=== PATIENT | female | born 1990 | race Hispanic/Latino ===

== ENCOUNTER 2020-08-06 20:08 | Observation (INO) | payer MEDICAID ==
[~2020-08-06 20:08] MED LIST: IBUP-1493 PO; PREN-147 PO
[2020-08-06] MEDS ORDERED: LACTATED RINGERS 1000ML 1,000 ML IV PRN (20:30)
[2020-08-06 20:40] LABS: APPEARANCE,URINE Clear (CLEAR); BILIRUBIN,URINE Negative (NEGATIVE); COLOR,URINE Yellow (YELLOW); GLUCOSE, URINE (UA) Negative (NEGATIVE); KETONES,URINE Negative (NEGATIVE); LEUKOCYTE ESTERASE ,URINE Negative (NEGATIVE); NITRATE,URINE Negative (NEGATIVE); OCCULT BLOOD,URINE Negative (NEGATIVE); PH,URINE 6.5 (5.0-8.0); PROTEIN,URINE Negative (NEGATIVE)
[2020-08-06 20:48] LABS: AMPHET/METH SCREEN,URINE NEGATIVE (NEGATIVE); BARBITURATE SCREEN, URINE NEGATIVE (NEGATIVE); BENZODIAZEPINES SCREEN,URINE NEGATIVE (NEGATIVE); CANNABINOID SCREEN,URINE NEGATIVE (NEGATIVE); COCAINE SCREEN,URINE NEGATIVE (NEGATIVE); OPIATE SCREEN,URINE NEGATIVE (NEGATIVE); PHENCYCLIDINE SCREEN,URINE NEGATIVE (NEGATIVE)
[2020-08-06] MEDS ORDERED: TERBUTALINE SULFATE VIAL 1MG/ML SQ SCH ×2 (21:30)
[2020-08-06] MEDS ORDERED: LACTATED RINGERS 1000ML 1,000 ML IV SCH ×2 (21:30)
[2020-08-06] MEDS ORDERED: TERBUTALINE SULFATE VIAL 1MG/ML SQ ONE (21:37)
== END 2020-08-06 22:50 | disposition home or self-care (01) ==
LOC: EDH 20:08 → LDH 20:09
PROVIDERS: ADMIT Specialist; ATTEND Specialist
DX: O60.03 Preterm labor without delivery, third trimester (principal); Z3A.36 36 weeks gestation of pregnancy; Z88.1 Allergy status to other antibiotic agents
CPT/HCPCS: 59025; 80305; 81003; 96360; 96372; 99284; G0378 ×2; J3105

== ENCOUNTER 2020-08-07 14:37 | Observation (INO) | payer MEDICAID ==
[~2020-08-07] VITALS: Ht 165.1 cm; Wt 83.5 kg
[2020-08-07 15:05] LABS: APPEARANCE,URINE Clear (CLEAR); BILIRUBIN,URINE Negative (NEGATIVE); COLOR,URINE Yellow (YELLOW); GLUCOSE, URINE (UA) Negative (NEGATIVE); KETONES,URINE Negative (NEGATIVE); LEUKOCYTE ESTERASE ,URINE Negative (NEGATIVE); NITRATE,URINE Negative (NEGATIVE); OCCULT BLOOD,URINE Negative (NEGATIVE); PH,URINE 6.5 (5.0-8.0); PROTEIN,URINE Negative (NEGATIVE)
[2020-08-07] MEDS ORDERED: LACTATED RINGERS 1000ML IV SCH (16:30)
== END 2020-08-07 16:23 | disposition home or self-care (01) ==
LOC: EDH 14:37 → LDH 14:42
PROVIDERS: ADMIT Specialist; ATTEND Specialist
DX: O62.9 Abnormality of forces of labor, unspecified (principal); Z3A.37 37 weeks gestation of pregnancy
CPT/HCPCS: 59025; 96360; 99284; G0378 ×2; J7120

== ENCOUNTER 2020-08-08 08:32 | Observation (INO) | payer MEDICAID ==
[~2020-08-08] VITALS: Ht 165.1 cm; Wt 83.0 kg
[2020-08-08 10:01] VITALS: BP 109/65
== END 2020-08-08 11:03 | disposition home or self-care (01) ==
LOC: UNDOADMOB 08:32 → EDHIP 08:32 → LDH 09:40
PROVIDERS: ADMIT Specialist; ATTEND Specialist
DX: O24.419 Gestational diabetes mellitus in pregnancy, unspecified control (principal); Z3A.36 36 weeks gestation of pregnancy
CPT/HCPCS: 59025; 76819; G0378

== ENCOUNTER 2020-08-14 17:27 | Observation (INO) | payer MEDICAID ==
[~2020-08-14] VITALS: Ht 165.1 cm; Wt 83.9 kg
[2020-08-14] MEDS ORDERED: TERBUTALINE SULFATE VIAL 1MG/ML SQ PRN (18:45)
[2020-08-14] MEDS ORDERED: LACTATED RINGERS 1000ML IV SCH (18:45)
== END 2020-08-14 21:17 | disposition home or self-care (01) ==
LOC: EDH 17:27 → LDH 17:40
PROVIDERS: ADMIT Specialist; ATTEND Specialist
DX: O62.9 Abnormality of forces of labor, unspecified (principal); Z88.1 Allergy status to other antibiotic agents; Z3A.38 38 weeks gestation of pregnancy
CPT/HCPCS: 59025; 96360; 96361; 96372; 99284; G0378 ×4; J3105; J7120

== ENCOUNTER 2020-08-25 13:40 | Observation (INO) | payer MEDICAID | END 2020-08-25 15:45 | disposition home or self-care (01) | LOC: LDH 13:40 | PROVIDERS: ADMIT Specialist; ATTEND Specialist | DX: O62.9 Abnormality of forces of labor, unspecified (principal); Z3A.38 38 weeks gestation of pregnancy | CPT/HCPCS: 59025; G0378 ==

== ENCOUNTER 2020-08-27 17:54 | Inpatient (IN) | payer MEDICAID ==
[~2020-08-27] VITALS: Ht 165.1 cm; Wt 81.6 kg
[2020-08-27] MEDS: OXYTOCIN-LR 20 UNITS/1000 ML 1,000 ML IV SCH (15:33)
[2020-08-27] MEDS ORDERED: PROMETHAZINE HCL 25 MG/ML 1ML AMPULE IM PRN (18:00)
[2020-08-27] MEDS ORDERED: NALOXONE HCL 0.4 MG/1 ML ML IV PRN (18:00)
[2020-08-27] MEDS ORDERED: LACTATED RINGERS 500 ML 500 ML IV PRN (18:00)
[2020-08-27] MEDS ORDERED: MEPERIDINE-PF 50 MG/ML SYG IVP PRN (18:00)
[2020-08-27] MEDS ORDERED: LACTATED RINGERS 1000ML 1,000 ML IV PRN (18:00)
[2020-08-27] MEDS ORDERED: ROPIVACAINE 0.2% 100ML VIAL 100 ML EP SCH (18:00)
[2020-08-27] MEDS ORDERED: EPHEDRINE SULFATE 50 MG/ML AMPULE IVP PRN (18:00)
[2020-08-27] MEDS ORDERED: PREN-196 PO (18:11)
[2020-08-27] MEDS ORDERED: MISOPROSTOL 100 MCG TABLET VG SCH (18:30)
[2020-08-27 18:32] LABS: HEMATOCRIT 36.4 % (36-48); MEAN CORPUSCULAR HGB CONC 30.2 g/dL (32.0-36.0); MEAN CORPUSCULAR VOLUME 79.5 fL (79-99); PLATELET COUNT (AUTO) 284 K/uL (130-400); RED BLOOD CELL COUNT(AUTO) 4.58 MIL/uL (4.00-5.50); WHITE BLOOD COUNT (AUTO) 7.5 K/uL (4.8-10.8)
[2020-08-27 18:43] LABS: APPEARANCE,URINE Clear (CLEAR); BILIRUBIN,URINE Negative (NEGATIVE); COLOR,URINE Yellow (YELLOW); GLUCOSE, URINE (UA) Negative (NEGATIVE); KETONES,URINE Negative (NEGATIVE); LEUKOCYTE ESTERASE ,URINE Negative (NEGATIVE); NITRATE,URINE Negative (NEGATIVE); OCCULT BLOOD,URINE Negative (NEGATIVE); PH,URINE 6.5 (5.0-8.0); PROTEIN,URINE Negative (NEGATIVE); UROBILINOGEN,URINE 0.2 mg/dL (0.2-1.0)
[2020-08-27] MEDS ORDERED: CALCIUM CARB 500MG CHEW TAB PO SCH (20:00)
[2020-08-28] MEDS ORDERED: OXYTOCIN-LR 20 UNITS/1000 ML 1,000 ML IV SCH ×2 (05:00→06:00)
[2020-08-28] MEDS: OXYTOCIN-LR 20 UNITS/1000 ML 1,000 ML IV SCH (16:26)
[2020-08-28] MEDS ORDERED: WITCH HAZEL 1 PAD TP PRN (16:30)
[2020-08-28] MEDS ORDERED: MEASLES/MUMPS/RUBELLA VACCINE, LIVE 0.5 ML/VIAL SQ PRN (16:30)
[2020-08-28] MEDS ORDERED: LANOLIN 30GM OINTMENT TP PRN (16:30)
[2020-08-28] MEDS ORDERED: BENZOCAINE/LANOLIN/ALOE VERA 60 ML AEROSOL TP PRN (16:30)
[2020-08-28] MEDS ORDERED: DIPH,PERTUSS(ACELL),TET VAC/PF 0.5 ML VIAL IM PRN (16:30)
[2020-08-28] MEDS ORDERED: ACETAMINOPHEN WITH CODEINE 1 TAB TAB PO PRN (16:30)
[2020-08-28] MEDS ORDERED: ACETAMINOPHEN 325 MG TAB PO PRN (16:30)
[2020-08-28 17:40] VITALS: BP 125/77
[2020-08-28] MEDS: IBUPROFEN 600 MG TABLET PO PRN (18:03)
[2020-08-28 19:21] VITALS: BP 132/81
[2020-08-28] MEDS: DOCUSATE SODIUM 100 MG CAP PO SCH (21:05)
[2020-08-28 23:33] VITALS: BP 110/62
[2020-08-29 03:45] VITALS: BP 97/50
[2020-08-29 07:16] LABS: HEPATITIS Bs ANTIGEN SCREEN P Negative (Negative)
[2020-08-29 07:27] VITALS: BP 121/73
[2020-08-29] MEDS: DOCUSATE SODIUM 100 MG CAP PO SCH (08:50)
[2020-08-29] MEDS: IBUPROFEN 600 MG TABLET PO PRN (08:51)
[2020-08-29 10:59] VITALS: BP 122/98
== END 2020-08-29 17:00 | disposition home or self-care (01) | DRG 560 ==
LOC: LDH 17:56 → WSH 08-28 17:35
PROVIDERS: ADMIT Specialist; ATTEND Specialist
PROC: 10E0XZZ Delivery of Products of Conception, External Approach (ICD-10-PCS; principal; 2020-08-28)
PROC: 3E033VJ Introduction of Other Hormone into Peripheral Vein, Percutaneous Approach (ICD-10-PCS; 2020-08-28)
PROC: 00HU33Z Insertion of Infusion Device into Spinal Canal, Percutaneous Approach (ICD-10-PCS; 2020-08-28)
PROC: 3E0R3BZ Introduction of Anesthetic Agent into Spinal Canal, Percutaneous Approach (ICD-10-PCS; 2020-08-28)
PROC: 3E0134Z Introduction of Serum, Toxoid and Vaccine into Subcutaneous Tissue, Percutaneous Approach (ICD-10-PCS; 2020-08-28)
PROC: 3E0234Z Introduction of Serum, Toxoid and Vaccine into Muscle, Percutaneous Approach (ICD-10-PCS; 2020-08-28)
DX: O24.420 Gestational diabetes mellitus in childbirth, diet controlled (principal); O69.1XX0 Labor and delivery complicated by cord around neck, with compression, not applicable or unspecified; Z37.0 Single live birth; Z3A.39 39 weeks gestation of pregnancy; Z23 Encounter for immunization
CPT/HCPCS: 36415; 81003; 82947; 85027; 86592; 86850; 86900; 86901; 87340; 90715; A4314; G0378; J2175; J2550; J2590; J2795; J7120

== ENCOUNTER 2021-10-25 00:17 | Observation (INO) | payer MEDICAID ==
[~2021-10-25] VITALS: Ht 162.6 cm; Wt 84.4 kg
[2021-10-25 00:50] LABS: APPEARANCE,URINE CLEAR (CLEAR); BILIRUBIN,URINE NEGATIVE (NEGATIVE); COLOR,URINE YELLOW (YELLOW); GLUCOSE, URINE (UA) NEGATIVE (NEGATIVE); KETONES,URINE NEGATIVE (NEGATIVE); LEUKOCYTE ESTERASE ,URINE SMALL (NEGATIVE); NITRATE,URINE NEGATIVE (NEGATIVE); OCCULT BLOOD,URINE NEGATIVE (NEGATIVE); PH,URINE 6.5 (5.0-8.0); PROTEIN,URINE NEGATIVE (NEGATIVE); UROBILINOGEN,URINE 0.2 mg/dL (0.2-1.0)
[2021-10-25] MEDS: LACTATED RINGERS 1000ML IV PRN ×2 (01:07→01:38)
[2021-10-25 01:09] LABS: BACTERIA,URINE None Seen /HPF (None Seen); RBC,URINE None Seen /HPF (0-1); SQUAMOUS EPITHELIAL CELL,UR Rare /HPF (0-2); WBC,URINE 0-1 /HPF (0-1)
[2021-10-25 01:17] LABS: AMPHET/METH SCREEN,URINE NEGATIVE (NEGATIVE); BARBITURATE SCREEN, URINE NEGATIVE (NEGATIVE); BENZODIAZEPINES SCREEN,URINE NEGATIVE (NEGATIVE); CANNABINOID SCREEN,URINE NEGATIVE (NEGATIVE); COCAINE SCREEN,URINE NEGATIVE (NEGATIVE); OPIATE SCREEN,URINE NEGATIVE (NEGATIVE); PHENCYCLIDINE SCREEN,URINE NEGATIVE (NEGATIVE)
[2021-10-25] MEDS ORDERED: EPHEDRINE SULFATE 50 MG/ML AMPULE IVP PRN (02:00)
[2021-10-25] MEDS ORDERED: NALOXONE HCL 0.4 MG/1 ML ML IV PRN (02:00)
[2021-10-25] MEDS ORDERED: LACTATED RINGERS 1000ML 1,000 ML IV PRN (02:00)
[2021-10-25] MEDS ORDERED: CLINDAMYCIN IVPB 600MG/50ML 50 ML IV SCH (02:00)
[2021-10-25] MEDS ORDERED: PROMETHAZINE HCL 25 MG/ML 1ML AMPULE IM PRN (02:00)
[2021-10-25] MEDS ORDERED: ROPIVACAINE 0.2% 100ML VIAL 100 ML EP SCH (02:00)
[2021-10-25] MEDS ORDERED: MEPERIDINE-PF 50 MG/ML SYG IVP PRN (02:00)
[2021-10-25 02:10] LABS: HEMATOCRIT 36.9 % (36-48); MEAN CORPUSCULAR HGB CONC 31.4 g/dL (32.0-36.0); MEAN CORPUSCULAR VOLUME 82.7 fL (79-99); RED BLOOD CELL COUNT(AUTO) 4.46 MIL/uL (4.00-5.50); RED CELL DISTRIBUTION WIDTH 15.6 % (11.0-15.5)
[2021-10-25 02:29] VITALS: BP 113/71
[2021-10-25 11:46] LABS: RAPID PLASMA REAGIN NONREACTIVE (NONREACTIVE)
== END 2021-10-25 09:05 | disposition home or self-care (01) ==
LOC: EDH 00:17 → LDH 00:18 → INTOOBSV 00:18 → OBSVTOIN 00:18
PROVIDERS: ADMIT Internal Medicine; ATTEND Internal Medicine
DX: O60.03 Preterm labor without delivery, third trimester (principal); O24.419 Gestational diabetes mellitus in pregnancy, unspecified control; O99.613 Diseases of the digestive system complicating pregnancy, third trimester; K59.00 Constipation, unspecified; Z3A.37 37 weeks gestation of pregnancy
CPT/HCPCS: 36415; 80305; 81001; 82947; 85027; 86592; 86701; 86850; 86900; 86901; 87340; 87390; 96365; 96366; G0378 ×9; G0379; J2175; J2550; J3490; J7120; 96360

== ENCOUNTER 2021-11-04 17:24 | Observation (INO) | payer MEDICAID ==
[~2021-11-04] VITALS: Ht 162.6 cm; Wt 83.5 kg
[2021-11-04 17:27] VITALS: BP 124/69
[2021-11-04 18:21] LABS: APPEARANCE,URINE CLEAR (CLEAR); BILIRUBIN,URINE NEGATIVE (NEGATIVE); COLOR,URINE YELLOW (YELLOW); GLUCOSE, URINE (UA) NEGATIVE (NEGATIVE); KETONES,URINE NEGATIVE (NEGATIVE); LEUKOCYTE ESTERASE ,URINE NEGATIVE (NEGATIVE); NITRATE,URINE NEGATIVE (NEGATIVE); OCCULT BLOOD,URINE NEGATIVE (NEGATIVE); PROTEIN,URINE NEGATIVE (NEGATIVE); UROBILINOGEN,URINE 0.2 mg/dL (0.2-1.0)
[2021-11-06] MEDS ORDERED: PREN-196 PO (00:13)
[2021-11-06] MEDS ORDERED: PREN-18 PO (13:47)
[2021-11-06] MEDS ORDERED: DIPH25 PO (13:47)
[2021-11-07] MEDS ORDERED: IBUP-1673 PO (13:15)
== END 2021-11-04 22:20 | disposition home or self-care (01) ==
LOC: EDH 17:24 → LDH 17:25
PROVIDERS: ADMIT Internal Medicine; ATTEND Internal Medicine
DX: O62.9 Abnormality of forces of labor, unspecified (principal); O24.419 Gestational diabetes mellitus in pregnancy, unspecified control; Z3A.38 38 weeks gestation of pregnancy
CPT/HCPCS: 81003; G0378 ×5